=== PATIENT | female | born 1935 | race Caucasian/White ===

== ENCOUNTER 2019-02-11 15:24 | Emergency (ER) | payer MEDICARE ==
[~2019-02-11] VITALS: Ht 152.4 cm; Wt 49.9 kg
--- NOTE | 2019-02-11 15:44 | NUR ---
Patient discharged to home in stable conditon. Written and verbal after care instructions given to patient. Patient verbalizes understanding of instructions.
== END 2019-02-11 15:45 | disposition home or self-care (01) ==
LOC: ER 15:24
DX: T16.1XXA Foreign body in right ear, initial encounter (principal); E78.5 Hyperlipidemia, unspecified; X58.XXXA Exposure to other specified factors, initial encounter; Y93.89 Activity, other specified; Y92.89 Other specified places as the place of occurrence of the external cause; Y99.8 Other external cause status
CPT/HCPCS: A4663

== ENCOUNTER 2020-09-23 11:17 | Inpatient (IN) | payer MEDICARE, BC ==
[~2020-09-23] VITALS: Ht 165.1 cm; Wt 49.9 kg
--- NOTE | 2020-09-23 11:27 | NUR ---
NO INFORMAION ABOUT CURRENT HOME MEDICATIONS AVAILABLE.
[2020-09-23] MEDS ORDERED: IV NORMAL SALINE 1000 ML BAG IV ONE (12:00)
[2020-09-23 12:37] LABS: BASOPHILS % (AUTO) 0.1 % (0.0-2.0); HEMATOCRIT 32.5 % (31.2-41.9); HEMOGLOBIN 10.8 g/dL (10.9-14.3); LYMPHOCYTES # (AUTO) 0.1 K/uL (20.0-40.0); LYMPHOCYTES % (AUTO) 1.7 % (20.5-51.5); MEAN CORPUSCULAR HGB CONC 33 g/dL (32.3-35.6); MONOCYTES # (AUTO) 2.3 K/uL (2.0-10.0); MONOCYTES % (AUTO) 37.8 % (0.0-11.0); NEUTROPHILS # (AUTO) 3.6 K/uL (1.8-8.9); NEUTROPHILS % (AUTO) 60.4 % (38.5-71.5); PLATELET COUNT (AUTO) 95 K/uL (179-408); RED BLOOD CELL COUNT(AUTO) 3.49 MIL/uL (3.63-4.92)
[2020-09-23 12:42] LABS: BILIRUBIN,DIRECT 0.2 mg/dL (0.0-0.2); BILIRUBIN,TOTAL 0.5 mg/dL (0.2-1.0); CREATININE 0.8 mg/dL (0.6-1.3); POTASSIUM 4.4 mmol/L (3.5-5.1); TOTAL PROTEIN, SERUM 7.1 g/dL (6.4-8.2)
--- NOTE | 2020-09-23 13:30 | NUR ---
Report given to Irene Jefferson.
[2020-09-23] MEDS ORDERED: NEOMY/BACITRA/POLYMYXIN B OINT UD PACKET TP ONE ×2 (13:45→16:27)
--- NOTE | 2020-09-23 13:46 | NUR ---
Patient served lunch, and able to independently eat without any difficulty. Awaiting bed availability. Diffuse bruising noted on the face and chin; denies any acute distress. Speaking and cohorent. Able to verbalize concerns. Will continue to monitor in and carry out inpatient orders and care.
--- NOTE | 2020-09-23 14:31 | NUR ---
Consumed lunch at 50% with 320 mL of fluids.
[2020-09-23] MEDS: IV NS 1000 ML 1,000 ML IV PRN (15:12)
--- NOTE | 2020-09-23 15:22 | NUR ---
The patient refused the exam since she desperately needed to use the rest room. She was unable to move. The tech requested the nurse for help. The tech will go back and try again in half an hour.
--- NOTE | 2020-09-23 16:05 | NUR ---
Veterinary Poultry Inspector at bedside for carotid.
--- NOTE | 2020-09-23 16:05 | NUR ---
Fortino schroeder in ED - 09/23/20 at 1606 by [employer] Tower Climber at bedside for carotid.
--- NOTE | 2020-09-23 16:06 | NUR ---
Social Services Manager at bedside for carotid study.
--- NOTE | 2020-09-23 19:09 | NUR ---
PT TRANS TO TELE FLOOR BY NURSING THREAD ROLLER, VELVET NOTED.
--- NOTE | 2020-09-23 19:09 | NUR ---
Patient resting comfortably. Bathroom privileges provided with maximal assist. Redness to coccyx noted. Reported to daughter; reported to doctor. Patient was advised of the findings.
[2020-09-23 20:00] VITALS: BP 118/59
--- NOTE | 2020-09-23 20:14 | NUR ---
Received patient in bed.AALOX3.On RA.On tele monitor.Denies pain. No s/s acute distress noted at this time.S/P fall.IV on right FA patent and intact with NS 0.9 % running well at 75 cc/ml.Tolerated well. Snacks provided.Safety measures in place.Call light and belongings with in reach.
[2020-09-23 23:59] LABS: BAND % (MANUAL) 1 % (0-10); BASOPHILS % (MANUAL) 1 % (0-2); EOSINOPHILS % (MANUAL) 1 % (0-8); MONOCYTES % (MANUAL) 15 % (2-10); NEUTROPHILS % (MANUAL) 82 % (42-75)
[2020-09-24] VITALS: BP 121/56
[2020-09-24] MEDS ORDERED: ACETAMINOPHEN 325 MG TABLET PO PRN (00:30)
[2020-09-24 04:00] VITALS: BP 117/51
[2020-09-24] MEDS: IV NS 1000 ML 1,000 ML IV PRN ×2 (04:17→12:23)
--- NOTE | 2020-09-24 06:48 | NUR ---
Patient slept through out the night .Afebrile.No acute distress noted.All needs anticipated and met accordingly.
[2020-09-24 07:23] LABS: PHOSPHOROUS 2.2 mg/dL (2.5-4.9); POTASSIUM 3.7 mmol/L (3.5-5.1)
[2020-09-24 07:48] LABS: BASOPHILS % (AUTO) 0.1 % (0.0-2.0); EOSINOPHILS % (AUTO) 0.1 % (0.0-7.0); HEMATOCRIT 35.6 % (31.2-41.9); HEMOGLOBIN 12.1 g/dL (10.9-14.3); LYMPHOCYTES # (AUTO) 0.2 K/uL (20.0-40.0); LYMPHOCYTES % (AUTO) 2.1 % (20.5-51.5); MEAN CORPUSCULAR HEMOGLOBIN 30.8 uug (24.7-32.8); MEAN CORPUSCULAR HGB CONC 34 g/dL (32.3-35.6); MEAN CORPUSCULAR VOLUME 90.4 fL (75.5-95.3); MONOCYTES % (AUTO) 47.8 % (0.0-11.0); NEUTROPHILS # (AUTO) 5.2 K/uL (1.8-8.9); NEUTROPHILS % (AUTO) 49.9 % (38.5-71.5); PLATELET COUNT (AUTO) 117 K/uL (179-408); RED BLOOD CELL COUNT(AUTO) 3.94 MIL/uL (3.63-4.92); WHITE BLOOD COUNT (AUTO) 10.4 K/uL (3.8-11.8)
[2020-09-24] MEDS ORDERED: ENOXAPARIN SODIUM 40 MG/0.4 ML DISP.SYRIN SQ SCH (09:00)
[2020-09-24 11:22] VITALS: BP 108/56
[2020-09-24] MEDS ORDERED: NEUTRA PHOS PACKET PO ONE (15:15)
[2020-09-24 15:32] LABS: *BILIRUBIN,URIN NEGATIVE (NEGATIVE); *BLOOD, URINE 1+ (NEGATIVE); *CLARITY,URINE SLIGHTLY CLOUDY (CLEAR); *COLOR,URINE YELLOW (YELLOW); *KETONES,URINE TRACE (NEGATIVE); *UROBILINOGEN,URINE 0.2 E.U./dl (NORMAL); LEUKOCYTE ESTERASE ,URINE TRACE (NEGATIVE); NITRITE, URINE NEGATIVE (NEGATIVE); PH,URINE 5.5 (5.0-8.0); UGLUCOSE NEGATIVE (NEGATIVE)
[2020-09-24 16:03] VITALS: BP 118/54
[2020-09-24 17:56] LABS: LYMPHOCYTES % (MANUAL) 1 % (20-40); MONOCYTES % (MANUAL) 38 % (2-10); NEUTROPHILS % (MANUAL) 61 % (42-75)
[2020-09-24] MEDS ORDERED: TROS20TA3 PO (18:05)
[2020-09-24] MEDS ORDERED: MIRA50TA PO (18:05)
--- NOTE | 2020-09-24 18:48 | NUR ---
Patient stable throughout shift. Wanted to leave and agitated this morning but was able to talk to daughter Pari and agreeable to stay. Not in acute distress at this time. Safety precaution in place
[2020-09-24 20:00] VITALS: BP_SYST 111; BP_SYST 122; BP_DIAS 54; BP_DIAS 60
--- NOTE | 2020-09-24 20:30 | NUR ---
Received patient in bed.AxOx3.On RA no s/s of acute distress, no SOB noted. VSS. Denies any pain/ discomfort at the moment. IV on right FA patent and intact with NS 0.9 % running well at 75 cc/ml. safety measures maintained. Call light and all personal items within reach.
[2020-09-24 21:19] LABS: BACTERIA,URINE MANY /HPF (NONE SEEN); SQUAMOUS EPITHELIAL CELL,UR FEW /HPF (NONE SEEN)
--- NOTE | 2020-09-24 22:00 | NUR ---
IV site leaking. Discontinued and established new IV 22G right Forearm intact and patent running NS 77cc/hr. Patient is resting comfortably. All needs attended to promptly. Kept clean, dry and comfortable. Safety measure maintained. Will continue to monitor through the night
[2020-09-25 04:00] VITALS: BP 130/50
[2020-09-25 07:12] LABS: CARBON DIOXIDE 23 mmol/L (21-32); CHLORIDE 105 mmol/L (98-107); CREATININE 0.9 mg/dL (0.6-1.3); GLUCOSE 115 mg/dL (74-106); MAGNESIUM 2.2 mg/dL (1.8-2.4); PHOSPHOROUS 2.6 mg/dL (2.5-4.9); POTASSIUM 3.4 mmol/L (3.5-5.1); UREA NITROGEN, BLOOD 19 mg/dL (7-18)
[2020-09-25 07:13] LABS: BASOPHILS % (AUTO) 0.2 % (0.0-2.0); EOSINOPHILS % (AUTO) 0.2 % (0.0-7.0); HEMATOCRIT 36.4 % (31.2-41.9); HEMOGLOBIN 12.3 g/dL (10.9-14.3); LYMPHOCYTES # (AUTO) 0.3 K/uL (20.0-40.0); LYMPHOCYTES % (AUTO) 2.8 % (20.5-51.5); MEAN CORPUSCULAR HEMOGLOBIN 30.7 uug (24.7-32.8); MEAN CORPUSCULAR HGB CONC 34 g/dL (32.3-35.6); MEAN CORPUSCULAR VOLUME 90.5 fL (75.5-95.3); MONOCYTES # (AUTO) 5.9 K/uL (2.0-10.0); MONOCYTES % (AUTO) 49.8 % (0.0-11.0); NEUTROPHILS # (AUTO) 5.6 K/uL (1.8-8.9); PLATELET COUNT (AUTO) 112 K/uL (179-408); RED BLOOD CELL COUNT(AUTO) 4.02 MIL/uL (3.63-4.92); WHITE BLOOD COUNT (AUTO) 11.9 K/uL (3.8-11.8)
[2020-09-25] MEDS: IV NS 1000 ML 1,000 ML IV PRN (08:25)
[2020-09-25] MEDS ORDERED: CEPH-570 PO (11:56)
[2020-09-25 12:00] VITALS: BP 104/75
[2020-09-25] MEDS ORDERED: CEFTRIAXONE 1 G in IV DEXTROSE 5% 50 ML IV SCH (12:00)
--- NOTE | 2020-09-25 12:47 | NUR ---
Nursing Notes: Angiocath Removed: Removed angiocath 22G IV, no s/s of infection on site, pressure dressing applied.
--- NOTE | 2020-09-25 13:45 | NUR ---
Nursing Notes: Discharge Notes: Patient is awake and responding to her name, cooperative with nursing care, compliant with her medications, following staff directions, discharge home with her daughter - Cheri , picked up by daughter, instructions given to the daughter, David, COMPLIANCE MONITOR called her pharmacy for her medications, escorted to the private vehicle via w/c, transported home via private vehicle with her daughter - Cheri.
[2020-09-25 17:55] LABS: BAND % (MANUAL) 2 % (0-10); LYMPHOCYTES % (MANUAL) 18 % (20-40); MONOCYTES % (MANUAL) 30 % (2-10); NEUTROPHILS % (MANUAL) 50 % (42-75)
== END 2020-09-25 13:45 | disposition home health service (06) | DRG 557 ==
LOC: ER 11:17 → TELE3 19:03 → MEDSURG3 09-24 15:17
PROVIDERS: ADMIT Nurse Practitioner Acute Care; ATTEND Nurse Practitioner Acute Care
DX: M62.82 Rhabdomyolysis (principal); G93.41 Metabolic encephalopathy; N39.0 Urinary tract infection, site not specified; S02.2XXA Fracture of nasal bones, initial encounter for closed fracture; W18.30XA Fall on same level, unspecified, initial encounter; Y92.012 Bathroom of single-family (private) house as the place of occurrence of the external cause; R53.1 Weakness; R32 Unspecified urinary incontinence; S00.83XA Contusion of other part of head, initial encounter; B96.20 Unspecified Escherichia coli [E. coli] as the cause of diseases classified elsewhere; D72.829 Elevated white blood cell count, unspecified; R29.6 Repeated falls
CPT/HCPCS: 36415; 70030-TC; 70450; 70486; 71045; 72125; 83605; 83735; 84100; 85025; 85730; 87040; 87077; 87086; 93005; 93307; 93880; A4663; C1758; G0378; J0696; J7030; J7060